=== PATIENT | male | born 1945 | race Caucasian/White ===

== ENCOUNTER 2017-12-22 09:52 | Inpatient (IN) | payer OTHER ==
[2017-12-22 11:23] VITALS: BMI 27.4
[2017-12-22] MEDS ORDERED: FLU VACCINE QUAD 60 MCG/0.5 ML (MDV 18-19) IM ONE (13:00)
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
[2017-12-22] MEDS ORDERED: MENTHOL/PHENOL 1 EACH UD MM PRN (16:47)
[2017-12-22] MEDS ORDERED: MAGNESIUM HYDROX 2400MG/30ML ORAL SUSPENSION 30 ML CUP PO PRN (16:47)
[2017-12-22] MEDS ORDERED: P-EPHED 60MG/TRIPROLIDI 2.5MG TABLET PO PRN (16:47)
[2017-12-22] MEDS ORDERED: LOPERAMIDE HCL 2 MG CAPSULE PO PRN (16:47)
[2017-12-22] MEDS ORDERED: guaiFENesin/D-METHORPHAN HB 10 ML UNIT-DOSE CUPS PO PRN (16:47)
[2017-12-22] MEDS ORDERED: chlordiazePOXIDE HCL 25 MG CAPSULE PO PRN (16:47)
[2017-12-22] MEDS ORDERED: MAG HYDROX/AL HYDROX/SIMETH 30 ML UNIT-DOSE CUP PO PRN (16:47)
[2017-12-22] MEDS ORDERED: MAGNESIUM CITRATE 300 ML BOTTLE PO PRN (16:47)
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
[2017-12-22] MEDS: THIAMINE HCL 100 MG TABLET (FP) PO SCH (22:35)
[2017-12-22] MEDS: traZODone HCL 50 MG TABLET (FP) PO SCH (22:35)
[2017-12-22] MEDS: chlordiazePOXIDE HCL 25 MG CAPSULE PO SCH (22:35)
[2017-12-23] MEDS: chlordiazePOXIDE HCL 25 MG CAPSULE PO SCH ×4 (05:50→22:20)
[2017-12-23] MEDS ORDERED: FLU VACCINE QUAD 60 MCG/0.5 ML (MDV 18-19) IM ONE (10:00)
[2017-12-23] MEDS: PRENATAL VITAMINS W/ FOLIC ACID TABLET (FP) PO SCH (10:39)
[2017-12-23 10:53] LABS: HEMATOCRIT 39.1 % (35.4-49); HEMOGLOBIN 12.9 GM/dL (11.7-16.9); MCH 31.8 pg (25.7-33.7); MEAN CELL VOLUME 96.4 fl (80-96); PLATELET COUNT 254 K/MM3 (134-434); RBC 4.05 M/mm3 (4.00-5.60); RDW 14.1 % (11.9-15.9); WHITE BLOOD COUNT 5.5 K/mm3 (4.0-10.0)
[2017-12-23 10:57] LABS: URINE APPEARANCE CLEAR; URINE BILIRUBIN NEGATIVE (<2.0 mg/dL); URINE COLOR YELLOW; URINE GLUCOSE (UA) NEGATIVE (NEGATIVE); URINE KETONE NEGATIVE (NEGATIVE); URINE LEUK ESTERASE NEGATIVE (NEGATIVE); URINE NITRITE NEGATIVE (NEGATIVE); URINE PROTEIN NEGATIVE (NEGATIVE); URINE UROBILINOGEN NEGATIVE mg/dL (0.2-1.0)
[2017-12-23 11:04] LABS: ALBUMIN 2.8 g/dl (3.4-5.0); ALK PHOS 103 U/L (45-117); ANION GAP 12 MMOL/L (8-16); BILIRUBIN,TOTAL 0.3 mg/dL (0.2-1); BLOOD UREA NITROGEN 16 mg/dL (7-18); CALCIUM 8.3 mg/dL (8.5-10.1); CHLORIDE 106 mmol/L (98-107); CO2 23 mmol/L (21-32); GLUCOSE,RANDOM 143 mg/dL (74-106); POTASSIUM 3.6 mmol/L (3.5-5.1); SGOT/AST 26 U/L (15-37); SGPT/ALT 37 U/L (13-61); SODIUM 141 mmol/L (136-145); TOT PROT 6.4 g/dl (6.4-8.2)
--- NOTE | 2017-12-23 11:42 | PN ---
S CIWA - CIWA Score Nausea/Vomitin-No Nausea/No Vomiting Muscle Tremors: 4-Moderate,w/Arms Extend Anxiety: 4-Mod. Anxious/Guarded Agitation: 3 Paroxysmal Sweats: 1-Minimal Palms Moist Orientation: 0-Oriented Tacttile Disturbances: 0-None Auditory Disturbances: 0-None Visual Disturbances: 0-None Headache: 0-None Present CIWA-Ar Total Score: 12 BHS Progress Note (SOAP) Subjective: ANXIETY,SWEATS,FATIGUE. Objective: 12/23/17 11:44 Vital Signs 12/23/17 12/23/17 06:07 09:17 Temperature 96.9 F L 96.8 F L Pulse Rate 55 L 60 Respiratory 18 18 Rate Blood Pressure 147/75 118/73 Laboratory Tests 12/23/17 12/23/17 12/23/17 07:50 07:50 08:50 WBC 5.5 RBC 4.05 Hgb 12.9 Hct 39.1 MCV 96.4 H MCH 31.8 MCHC 33.0 RDW 14.1 Plt Count 254 MPV 8.0 Sodium 141 Potassium 3.6 Chloride 106 Carbon Dioxide 23 Anion Gap 12 BUN 16 Creatinine 1.0 Creat Clearance w eGFR > 60 Random Glucose 143 H Calcium 8.3 L Total Bilirubin 0.3 AST 26 ALT 37 Alkaline Phosphatase 103 Total Protein 6.4 Albumin 2.8 L Urine Color Yellow Urine Appearance Clear Urine pH 6.0 Ur Specific [place] 1.015 Urine Protein Negative Urine Glucose (UA) Negative Urine Ketones Negative Urine Blood Negative Urine Nitrite Negative Urine Bilirubin Negative Urine Urobilinogen Negative Ur Leukocyte Esterase Negative Assessment: 12/23/17 11:45 WITHDRAWAL SX Plan: CONTINUE DETOX INCREASE PO FLUIDS
--- NOTE | 2017-12-23 15:41 | EKG ---
Test Reason : Blood Pressure : / mmHG Vent. Rate : 059 BPM Atrial Rate : 059 BPM P-R Int : 140 ms QRS Dur : 088 ms QT Int : 440 ms P-R-T Axes : 059 -17 030 degrees QTc Int : 435 ms SINUS BRADYCARDIA OTHERWISE NORMAL ECG NO PREVIOUS ECGS AVAILABLE Confirmed by MD Nestor, Bladimir ([id number]) on 12/23/2017 3:41:12 PM Referred By: Confirmed By:Bladimir Baez MD
[2017-12-23] MEDS: THIAMINE HCL 100 MG TABLET (FP) PO SCH (22:19)
[2017-12-23] MEDS: traZODone HCL 50 MG TABLET (FP) PO SCH (22:20)
[2017-12-24] MEDS: chlordiazePOXIDE HCL 25 MG CAPSULE PO SCH ×3 (05:39→17:19)
[2017-12-24] MEDS: PRENATAL VITAMINS W/ FOLIC ACID TABLET (FP) PO SCH (10:44)
--- NOTE | 2017-12-24 16:19 | PN ---
S CIWA - CIWA Score Nausea/Vomitin Muscle Tremors: 4-Moderate,w/Arms Extend Anxiety: 4-Mod. Anxious/Guarded Agitation: 4-Moderately Restless Paroxysmal Sweats: 3 Orientation: 0-Oriented Tacttile Disturbances: 0-None Auditory Disturbances: 0-None Visual Disturbances: 0-None Headache: 1-Very Mild CIWA-Ar Total Score: 18 BHS Progress Note (SOAP) Subjective: Headache, anxious, feels lonely, requesting to see psychiatrist Objective: 12/24/17 16:17 Last Vital Signs Temp Pulse Resp BP Pulse Ox 98.1 F 63 18 124/71 12/24/17 13:40 12/24/17 13:40 12/24/17 13:40 12/24/17 13:40 Laboratory Tests 12/23/17 12/23/17 12/23/17 07:50 07:50 07:50 WBC 5.5 RBC 4.05 Hgb 12.9 Hct 39.1 MCV 96.4 H MCH 31.8 MCHC 33.0 RDW 14.1 Plt Count 254 MPV 8.0 Sodium 141 Potassium 3.6 Chloride 106 Carbon Dioxide 23 Anion Gap 12 BUN 16 Creatinine 1.0 Creat Clearance w eGFR > 60 Random Glucose 143 H Calcium 8.3 L Total Bilirubin 0.3 AST 26 ALT 37 Alkaline Phosphatase 103 Total Protein 6.4 Albumin 2.8 L Urine Color Urine Appearance Urine pH Ur Specific [place] Urine Protein Urine Glucose (UA) Urine Ketones Urine Blood Urine Nitrite Urine Bilirubin Urine Urobilinogen Ur Leukocyte Esterase RPR Titer Nonreactive 12/23/17 08:50 WBC RBC Hgb Hct MCV MCH MCHC RDW Plt Count MPV Sodium Potassium Chloride Carbon Dioxide Anion Gap BUN Creatinine Creat Clearance w eGFR Random Glucose Calcium Total Bilirubin AST ALT Alkaline Phosphatase Total Protein Albumin Urine Color Yellow Urine Appearance Clear Urine pH 6.0 Ur Specific [place] 1.015 Urine Protein Negative Urine Glucose (UA) Negative Urine Ketones Negative Urine Blood Negative Urine Nitrite Negative Urine Bilirubin Negative Urine Urobilinogen Negative Ur Leukocyte Esterase Negative RPR Titer Labs reviewed: glucose 143 Assessment: 12/24/17 16:18 Withdrawal symptoms Noted with hyperglycemia Plan: Continue detox Hyperglycemia: repeat fasting glucose, send HbA1c
[2017-12-24] MEDS: THIAMINE HCL 100 MG TABLET (FP) PO SCH (22:05)
[2017-12-24] MEDS: chlordiazePOXIDE 5 MG CAPSULE PO SCH (22:05)
[2017-12-24] MEDS: traZODone HCL 50 MG TABLET (FP) PO SCH (22:06)
[2017-12-25] MEDS: MELATONIN 5 MG TABLETS PO PRN ×2 (00:28→22:06)
[2017-12-25] MEDS: chlordiazePOXIDE 5 MG CAPSULE PO SCH ×3 (05:59→17:48)
[2017-12-25] MEDS ORDERED: HYDROCORTISONE 1% TOPICAL CREAM 30 GM TUBE TP PRN (09:39)
[2017-12-25] MEDS: SELENIUM SULFIDE 2.5% LOTION 4 OZ. TP SCH (10:28)
[2017-12-25] MEDS: HYDROCORTISONE 1% TOPICAL CREAM 30 GM TUBE TP SCH ×2 (10:28→22:06)
[2017-12-25] MEDS: PRENATAL VITAMINS W/ FOLIC ACID TABLET (FP) PO SCH (10:28)
--- NOTE | 2017-12-25 12:24 | PN ---
S Progress Note (SOAP) Subjective: Tremor, chills, sweating; c/o dandruff in his scalp and requesting shampoo. Objective: 12/25/17 12:25 Last Vital Signs Temp Pulse Resp BP Pulse Ox 97 F L 50 L 18 100/54 L 12/25/17 10:01 12/25/17 10:01 12/25/17 10:01 12/25/17 10:01 Laboratory Tests 12/23/17 12/23/17 12/23/17 07:50 07:50 07:50 WBC 5.5 RBC 4.05 Hgb 12.9 Hct 39.1 MCV 96.4 H MCH 31.8 MCHC 33.0 RDW 14.1 Plt Count 254 MPV 8.0 Sodium 141 Potassium 3.6 Chloride 106 Carbon Dioxide 23 Anion Gap 12 BUN 16 Creatinine 1.0 Creat Clearance w eGFR > 60 Random Glucose 143 H Fasting Glucose Hemoglobin A1c % Calcium 8.3 L Total Bilirubin 0.3 AST 26 ALT 37 Alkaline Phosphatase 103 Total Protein 6.4 Albumin 2.8 L Urine Color Urine Appearance Urine pH Ur Specific [place] Urine Protein Urine Glucose (UA) Urine Ketones Urine Blood Urine Nitrite Urine Bilirubin Urine Urobilinogen Ur Leukocyte Esterase RPR Titer Nonreactive 12/23/17 12/25/17 12/25/17 08:50 07:00 07:00 WBC RBC Hgb Hct MCV MCH MCHC RDW Plt Count MPV Sodium Potassium Chloride Carbon Dioxide Anion Gap BUN Creatinine Creat Clearance w eGFR Random Glucose Fasting Glucose 91 Hemoglobin A1c % 5.9 Calcium Total Bilirubin AST ALT Alkaline Phosphatase Total Protein Albumin Urine Color Yellow Urine Appearance Clear Urine pH 6.0 Ur Specific [place] 1.015 Urine Protein Negative Urine Glucose (UA) Negative Urine Ketones Negative Urine Blood Negative Urine Nitrite Negative Urine Bilirubin Negative Urine Urobilinogen Negative Ur Leukocyte Esterase Negative RPR Titer Labs reviewed Assessment: 12/25/17 12:26 Withdrawal symptoms Noted with seborrheic dermatitis on scalp and dermatitis NOS on face Plan: Continue detox Seborrheic dermatitis on scalp: selsun blue shampoo prn Dermatitis NOS on face: hydrocortisone cream 1% bid
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
[2017-12-25] MEDS: traZODone HCL 50 MG TABLET (FP) PO SCH (22:06)
[2017-12-25] MEDS: THIAMINE HCL 100 MG TABLET (FP) PO SCH (22:06)
[2017-12-25] MEDS: chlordiazePOXIDE HCL 10 MG CAPSULE PO SCH (22:06)
[2017-12-26] MEDS: chlordiazePOXIDE HCL 10 MG CAPSULE PO SCH ×3 (05:57→17:06)
[2017-12-26] MEDS: SELENIUM SULFIDE 2.5% LOTION 4 OZ. TP SCH (10:34)
[2017-12-26] MEDS: PRENATAL VITAMINS W/ FOLIC ACID TABLET (FP) PO SCH (10:34)
[2017-12-26] MEDS: HYDROCORTISONE 1% TOPICAL CREAM 30 GM TUBE TP SCH ×2 (10:34→22:15)
[2017-12-26] MEDS: hydrOXYzine PAMOATE 25 MG CAPSULE (FP) PO PRN ×2 (10:43→23:57)
--- NOTE | 2017-12-26 14:19 | PN ---
BHS Progress Note (SOAP) Subjective: Anxious, interrupted sleep Objective: 12/26/17 14:18 Last Vital Signs Temp Pulse Resp BP Pulse Ox 97.2 F L 57 L 16 108/60 12/26/17 09:24 12/26/17 09:24 12/26/17 09:24 12/26/17 09:24 Laboratory Tests 12/23/17 12/23/17 12/23/17 07:50 07:50 07:50 WBC 5.5 RBC 4.05 Hgb 12.9 Hct 39.1 MCV 96.4 H MCH 31.8 MCHC 33.0 RDW 14.1 Plt Count 254 MPV 8.0 Sodium 141 Potassium 3.6 Chloride 106 Carbon Dioxide 23 Anion Gap 12 BUN 16 Creatinine 1.0 Creat Clearance w eGFR > 60 Random Glucose 143 H Fasting Glucose Hemoglobin A1c % Calcium 8.3 L Total Bilirubin 0.3 AST 26 ALT 37 Alkaline Phosphatase 103 Total Protein 6.4 Albumin 2.8 L Urine Color Urine Appearance Urine pH Ur Specific [place] Urine Protein Urine Glucose (UA) Urine Ketones Urine Blood Urine Nitrite Urine Bilirubin Urine Urobilinogen Ur Leukocyte Esterase RPR Titer Nonreactive 12/23/17 12/25/17 12/25/17 08:50 07:00 07:00 WBC RBC Hgb Hct MCV MCH MCHC RDW Plt Count MPV Sodium Potassium Chloride Carbon Dioxide Anion Gap BUN Creatinine Creat Clearance w eGFR Random Glucose Fasting Glucose 91 Hemoglobin A1c % 5.9 Calcium Total Bilirubin AST ALT Alkaline Phosphatase Total Protein Albumin Urine Color Yellow Urine Appearance Clear Urine pH 6.0 Ur Specific [place] 1.015 Urine Protein Negative Urine Glucose (UA) Negative Urine Ketones Negative Urine Blood Negative Urine Nitrite Negative Urine Bilirubin Negative Urine Urobilinogen Negative Ur Leukocyte Esterase Negative RPR Titer Labs reviewed Assessment: 12/26/17 14:18 Withdrawal symptoms Plan: Continue detox Encouraged PO water intake
[2017-12-26] MEDS: IBUPROFEN 400 MG TABLET (FP) PO PRN (18:05)
[2017-12-26] MEDS: traZODone HCL 50 MG TABLET (FP) PO SCH (22:15)
[2017-12-26] MEDS: MELATONIN 5 MG TABLETS PO PRN (22:15)
[2017-12-26] MEDS: THIAMINE HCL 100 MG TABLET (FP) PO SCH (22:15)
[2017-12-27] MEDS: HYDROCORTISONE 1% TOPICAL CREAM 30 GM TUBE TP SCH ×2 (10:49→21:34)
[2017-12-27] MEDS: SELENIUM SULFIDE 2.5% LOTION 4 OZ. TP SCH (10:49)
[2017-12-27] MEDS: PRENATAL VITAMINS W/ FOLIC ACID TABLET (FP) PO SCH (10:49)
--- NOTE | 2017-12-27 11:51 | DS ---
[facility] Detox Discharge Summary Admission Date: 12/22/17 Discharge Date: 12/27/17 - History Present History: Alcohol Dependence Pertinent Past History: Hypothyroidism HLD - Physical Exam Results Vital Signs: Vital Signs Temperature 97.1 F L 12/27/17 09:38 Pulse Rate 62 12/27/17 09:38 Respiratory Rate 18 12/27/17 09:38 Blood Pressure 99/59 L 12/27/17 09:38 O2 Sat by Pulse Oximetry (%) Pertinent Admission Physical Exam Findings: Withdrawal symptoms Laboratory Tests 12/23/17 12/23/17 12/23/17 07:50 07:50 07:50 WBC 5.5 RBC 4.05 Hgb 12.9 Hct 39.1 MCV 96.4 H MCH 31.8 MCHC 33.0 RDW 14.1 Plt Count 254 MPV 8.0 Sodium 141 Potassium 3.6 Chloride 106 Carbon Dioxide 23 Anion Gap 12 BUN 16 Creatinine 1.0 Creat Clearance w eGFR > 60 Random Glucose 143 H Fasting Glucose Hemoglobin A1c % Calcium 8.3 L Total Bilirubin 0.3 AST 26 ALT 37 Alkaline Phosphatase 103 Total Protein 6.4 Albumin 2.8 L Urine Color Urine Appearance Urine pH Ur Specific [place] Urine Protein Urine Glucose (UA) Urine Ketones Urine Blood Urine Nitrite Urine Bilirubin Urine Urobilinogen Ur Leukocyte Esterase RPR Titer Nonreactive 12/23/17 12/25/17 12/25/17 08:50 07:00 07:00 WBC RBC Hgb Hct MCV MCH MCHC RDW Plt Count MPV Sodium Potassium Chloride Carbon Dioxide Anion Gap BUN Creatinine Creat Clearance w eGFR Random Glucose Fasting Glucose 91 Hemoglobin A1c % 5.9 Calcium Total Bilirubin AST ALT Alkaline Phosphatase Total Protein Albumin Urine Color Yellow Urine Appearance Clear Urine pH 6.0 Ur Specific [place] 1.015 Urine Protein Negative Urine Glucose (UA) Negative Urine Ketones Negative Urine Blood Negative Urine Nitrite Negative Urine Bilirubin Negative Urine Urobilinogen Negative Ur Leukocyte Esterase Negative RPR Titer Labs reviewed - Treatment Hospital Course: Detox Protocol Followed, Detoxed Safely, Responded well, Discharged Condition Good, Rehab Referral Accepted - Diagnosis (1) Hyperglycemia Current Visit: Yes Status: Acute (2) Alcohol dependence with uncomplicated withdrawal Current Visit: Yes Status: Acute (3) Alcohol-induced mood disorder Current Visit: Yes Status: Acute (4) Insomnia Current Visit: Yes Status: Acute (5) History of hypothyroidism Current Visit: Yes Status: Chronic (6) Hx of hyperlipidemia Current Visit: Yes Status: Chronic (7) Dermatitis, unspecified Current Visit: Yes Status: Acute (8) Seborrheic dermatitis of scalp Current Visit: Yes Status: Acute - AMA Did Patient Leave Against Medical Advice: No (F/U with your PCP within 1-2 weeks after completing rehab)
[2017-12-27] MEDS: IBUPROFEN 400 MG TABLET (FP) PO PRN (13:21)
--- NOTE | 2017-12-27 14:36 | HP ---
Psychiatrist Admission - Data Date of interview: 12/27/17 Admission source: 3N Identifying data: This is the first [facility] admission for this 72 years old [place]born male, father of 4 children, retired restauranteur, domiciled Medical History: Significant for dyslipidemia, hypothyroid, history of treatment for gonorrhea in 1967, vasectomy and orthosurgery for torn rotator cuff repair, lithitripsy. Psychiatric History: Patient does not seem quite reliable in relating his psychiatric history. He told JUANITO Bazzi on 12/22/17 while in detox that he was admitted to a hospital in [place] 6 months ago but was unable to explain why he was at a psychiatric facility. He told conventional underwriter that he was admitted to that hospital 6 months ago for depression and stayed there for 2 months. Reports that he was started on medication but has no recollection of the name of that medication. Claims that he stopped taking it but cannot say when he did. Reportedly prior to his admission to detox, he contemplated of jumping off a window while at a hotel. Apparently, patient flew from [place] the day before. He reported drinking heavily during the whole trip and when landed at [facility] he became frustrated for losing his cell phone and luggage. Physical/Sexual Abuse/Trauma History: Denies history of emotional, physical or sexual abuse as well as DV relationship. Reports that he was in the [facility] for 3 years ![id number] Vital Signs: Vital Signs - 24 hr 12/26/17 12/26/17 12/27/17 18:00 22:00 00:30 Temperature 97.7 F 98.9 F Pulse Rate 49 L 66 Respiratory 16 18 18 Rate Blood Pressure 125/69 115/74 12/27/17 12/27/17 12/27/17 06:44 09:38 14:15 Temperature 97.2 F L 97.1 F L 98.2 F Pulse Rate 48 L 62 60 Respiratory 18 18 20 Rate Blood Pressure 100/64 99/59 L 138/80 Allergies/Adverse Reactions: Allergies Allergy/AdvReac Type Severity Reaction Status Date / Time No Known Allergies Allergy Verified 12/22/17 12:39 Date of last physical exam: 12/22/17 Concur with the findings of this exam: Yes - Substance Abuse/Tx History Hx Alcohol Use: Yes Hx Substance Use: No Substance Use Type: Alcohol (Started drinking alcohol at age 17, consumes 2-3 x 750 ml & 10x 16oz of beer daily. Last drank on 12/20/17) Hx Substance Use Treatment: Yes (2 previous inpt detox & one inpt rehab admissions) Mental Status Exam - Mental Status Exam Alert and Oriented to: Time, Place, Person Cognitive Function: Fair Patient Appearance: Well Groomed Mood: Anxious Affect: Appropriate Patient Behavior: Cooperative Speech Pattern: Clear Thought Process: Intact, Goal Oriented Hallucinations: Denies Suicidal Ideation: Denies Homicidal Ideation: Denies Insight/Judgement: Fair Sleep: Poorly Appetite: Good Muscle strength/Tone: Normal Gait/Station: Normal Psychiatric Findings - Problem List ([place] 1, 2,3) (1) Alcohol dependence Current Visit: Yes Status: Acute (2) Alcohol-induced anxiety disorder Current Visit: Yes Status: Acute (3) Alcohol-induced sleep disorder Current Visit: Yes Status: Acute (4) Hx of hyperlipidemia Current Visit: Yes Status: Chronic (5) History of hypothyroidism Current Visit: Yes Status: Chronic - Initial Treatment Plan Initial Treatment Plan: 1) Start Trazadone 100 mg po HS. 2) Monitor progress
--- NOTE | 2017-12-27 15:06 | HP ---
AUGUSTIN GRAHAM Rehab Assess/Revision - Admission History Admitted to Rehab from: [address] [place] Date of Admission to Rehab: 12/27/17 - Vital signs Vital Signs: Vital Signs Period Temp Pulse Resp BP Sys/Ruano Pulse Ox Last 24 Hr 97.1 F-98.9 F 48-66 16-20 99-138/59-80 - Findings Detox History & Physical reviewed: Yes Concur with findings: Yes Inpatient Rehab Admission - Initial Determination Are CD services needed?: Yes Free of communicable disease: Yes Not in need of hospitalization: Yes - Rehab Admission Criteria Patient is meeting Inpatient Rehab admission criteria:: Yes
[2017-12-27] MEDS: THIAMINE HCL 100 MG TABLET (FP) PO SCH (21:33)
[2017-12-27] MEDS: ATORVASTATIN CA 40 MG TABLET (FP) PO SCH (21:34)
[2017-12-27] MEDS: traZODone HCL 100 MG TABLET (FP) PO SCH (21:34)
[2017-12-28] MEDS: LEVOTHYROXINE NA 100 MCG TABLET (FP) PO SCH (06:21)
[2017-12-28] MEDS: ACETAMINOPHEN 325 MG TABLET (FP) PO PRN (06:22)
[2017-12-28] MEDS: HYDROCORTISONE 1% TOPICAL CREAM 30 GM TUBE TP SCH ×2 (10:09→21:35)
[2017-12-28] MEDS: PRENATAL VITAMINS W/ FOLIC ACID TABLET (FP) PO SCH (10:10)
[2017-12-28] MEDS: SELENIUM SULFIDE 2.5% LOTION 4 OZ. TP SCH (11:00)
[2017-12-28] MEDS ORDERED: FLU VACCINE QUAD 60 MCG/0.5 ML (MDV 18-19) IM ONE (12:00)
[2017-12-28] MEDS ORDERED: PNEUMOC 13-VAL CONJ-DIP CRM/PF 0.5 ML DISP.SYRIN IM ONE (12:00)
[2017-12-28] MEDS: IBUPROFEN 400 MG TABLET (FP) PO PRN (14:31)
[2017-12-28] MEDS: ATORVASTATIN CA 40 MG TABLET (FP) PO SCH (21:34)
[2017-12-28] MEDS: traZODone HCL 100 MG TABLET (FP) PO SCH (21:34)
[2017-12-28] MEDS: hydrOXYzine PAMOATE 25 MG CAPSULE (FP) PO PRN (21:34)
[2017-12-28] MEDS: THIAMINE HCL 100 MG TABLET (FP) PO SCH (21:34)
[2017-12-28] MEDS: MELATONIN 5 MG TABLETS PO PRN (21:35)
[2017-12-29] MEDS: IBUPROFEN 400 MG TABLET (FP) PO PRN ×3 (06:43→21:41)
[2017-12-29] MEDS: LEVOTHYROXINE NA 100 MCG TABLET (FP) PO SCH (06:43)
[2017-12-29] MEDS: PRENATAL VITAMINS W/ FOLIC ACID TABLET (FP) PO SCH (10:06)
[2017-12-29] MEDS: hydrOXYzine PAMOATE 25 MG CAPSULE (FP) PO PRN (10:08)
[2017-12-29] MEDS: HYDROCORTISONE 1% TOPICAL CREAM 30 GM TUBE TP SCH ×2 (10:09→21:42)
[2017-12-29] MEDS: SELENIUM SULFIDE 2.5% LOTION 4 OZ. TP SCH (10:09)
--- NOTE | 2017-12-29 14:59 | PN ---
S Progress Note Note: ROUTINE ADMISSION CXR DONE ON 12/25/17 RE:PPD POSITIVE HX WAS GROSSLY NORMAL EXCEPT A DENSITY IN THE CARDIOPHRENIC ANGLE. RADIOLOGIST SUGGESTION FOR F/U WITH CTSCAN WITHOUT CONTRAST. SEE CXR REPORT IN CHART. PLAN:CT SCAN WITHOUT CONTRAST TODAY. ADDENDUM: PT REPORTS HE JUST RETURNED FROM [place] ON 12/21/17 WHERE HE HAS A PMD. WS TOLD BY HIS DOCTOR SIX WEEKS AGO IN [place] THAT HE HAS SOME SPOTS IN HIS LIVER. ALSO C/O PAIN LEFT UPPER QUANDRANT- 5 ON A SCALE OF10 SINCE COUPLE OF DAYS.
[2017-12-29] MEDS: ACETAMINOPHEN 325 MG TABLET (FP) PO PRN (16:51)
[2017-12-29] MEDS: ATORVASTATIN CA 40 MG TABLET (FP) PO SCH (21:40)
[2017-12-29] MEDS: traZODone HCL 100 MG TABLET (FP) PO SCH (21:40)
[2017-12-29] MEDS: THIAMINE HCL 100 MG TABLET (FP) PO SCH (21:42)
[2017-12-30] MEDS: hydrOXYzine PAMOATE 25 MG CAPSULE (FP) PO PRN ×2 (01:46→21:40)
[2017-12-30] MEDS: MELATONIN 5 MG TABLETS PO PRN ×2 (01:46→21:40)
[2017-12-30] MEDS: LEVOTHYROXINE NA 100 MCG TABLET (FP) PO SCH (06:40)
[2017-12-30] MEDS: PRENATAL VITAMINS W/ FOLIC ACID TABLET (FP) PO SCH (09:50)
[2017-12-30] MEDS: HYDROCORTISONE 1% TOPICAL CREAM 30 GM TUBE TP SCH ×2 (09:50→21:42)
[2017-12-30] MEDS: SELENIUM SULFIDE 2.5% LOTION 4 OZ. TP SCH (09:50)
[2017-12-30] MEDS: THIAMINE HCL 100 MG TABLET (FP) PO SCH (21:40)
[2017-12-30] MEDS: traZODone HCL 100 MG TABLET (FP) PO SCH (21:40)
[2017-12-30] MEDS: ATORVASTATIN CA 40 MG TABLET (FP) PO SCH (21:41)
[2017-12-31] MEDS: LEVOTHYROXINE NA 100 MCG TABLET (FP) PO SCH (06:26)
[2017-12-31] MEDS: PRENATAL VITAMINS W/ FOLIC ACID TABLET (FP) PO SCH (09:55)
[2017-12-31] MEDS: SELENIUM SULFIDE 2.5% LOTION 4 OZ. TP SCH (09:55)
[2017-12-31] MEDS: HYDROCORTISONE 1% TOPICAL CREAM 30 GM TUBE TP SCH ×2 (09:55→21:44)
[2017-12-31] MEDS: THIAMINE HCL 100 MG TABLET (FP) PO SCH (21:42)
[2017-12-31] MEDS: traZODone HCL 100 MG TABLET (FP) PO SCH (21:42)
[2017-12-31] MEDS: MELATONIN 5 MG TABLETS PO PRN (21:42)
[2017-12-31] MEDS: hydrOXYzine PAMOATE 25 MG CAPSULE (FP) PO PRN (21:43)
[2017-12-31] MEDS: ATORVASTATIN CA 40 MG TABLET (FP) PO SCH (21:43)
[2018-01-01] MEDS: LEVOTHYROXINE NA 100 MCG TABLET (FP) PO SCH (06:36)
[2018-01-01] MEDS: PRENATAL VITAMINS W/ FOLIC ACID TABLET (FP) PO SCH (09:58)
[2018-01-01] MEDS: HYDROCORTISONE 1% TOPICAL CREAM 30 GM TUBE TP SCH ×2 (10:00→21:28)
--- NOTE | 2018-01-01 14:49 | PN ---
Psychiatric Progress Note Vital Signs: Vital Signs Period Temp Pulse Resp BP Sys/Ruano Pulse Ox Last 24 Hr 54 16-16 111/70 Date of Session: 01/01/18 Chief Complaint:: Follow up HPI: Patient addressing Alcohol Dependence comorobid with Alcohol-Induced Anxiety Disorder and Alcohol-Induced Sleep Disorder ROS: HLD, Hypothyroidism Current Medications: Active Medications Generic Name Dose Route Start Last Admin Trade Name Freq PRN Reason Stop Dose Admin Acetaminophen 650 mg 12/22/17 16:47 12/29/17 16:51 Tylenol - PO 650 mg Q4H PRN Administration FEVER Al Hydroxide/Mg Hydroxide 30 ml 12/22/17 16:47 Mylanta Oral Suspension - PO Q6H PRN DYSPEPSIA Atorvastatin Calcium 40 mg 12/27/17 22:00 12/31/17 21:43 Lipitor - PO 40 mg HS JUVENTINO Administration Escitalopram Oxalate 20 mg 01/01/18 14:45 Lexapro - PO DAILY JUVENTINO Eucalyptus/Menthol/Phenol/Sorbitol 1 each 12/22/17 16:47 12/24/17 22:07 Cepastat Lozenge - MM 1 each Q4H PRN Administration SORE THROAT Guaifenesin 10 ml 12/22/17 16:47 Robitussin Dm - PO Q6H PRN COUGH Hydrocortisone 1 applic 12/25/17 10:00 01/01/18 10:00 Hytone 1% Cream - TP 1 applic BID JUVENTINO Administration Hydroxyzine Pamoate 25 mg 12/22/17 16:47 12/31/17 21:43 Vistaril - PO 25 mg Q4H PRN Administration AGITATION Ibuprofen 400 mg 12/22/17 16:47 12/29/17 21:41 Motrin - PO 400 mg Q6H PRN Administration PAIN LEVEL 4-6 Levothyroxine Sodium 100 mcg 12/28/17 07:00 01/01/18 06:36 Synthroid - PO 100 mcg DAILY@0700 JUVENTINO Administration Loperamide HCl 4 mg 12/22/17 16:47 Imodium - PO Q6H PRN DIARRHEA Magnesium Citrate 300 ml 12/22/17 16:47 Citroma - PO Q48H PRN CONSTIPATION Magnesium Hydroxide 30 ml 12/22/17 16:47 Milk Of Magnesia - PO DAILY PRN CONSTIPATION Melatonin 5 mg 12/22/17 22:00 12/31/17 21:42 Melatonin PO 5 mg HS PRN Administration INSOMNIA Multivit/Folic Acid/Iron 1 tab 12/23/17 10:00 01/01/18 09:58 Vitamins (Sjr) - PO 1 tab DAILY JUVENTINO Administration Pseudoephedrine/Triprolidine 1 combo 12/22/17 16:47 Actifed - PO TID PRN NASAL CONGESTION Thiamine HCl 100 mg 12/22/17 22:00 12/31/17 21:42 Vitamin B1 - PO 100 mg HS JUVENTINO Administration Trazodone HCl 100 mg 12/27/17 22:00 12/31/17 21:42 Desyrel - PO 100 mg HS JUVENTINO Administration Current Side Effect: No Lab tests ordered: Yes Lab tests reviewed: Yes Provider note:: Patient with the help of his counselor using the was able to googled for his primary care physician's phone number( Dr Fan [phone]. He called the doctor for information about his medication. These are Trazadone 100 mg po HS, Lexapro 20 mg po daily, Levothyroxine 50 mcg po daily and Lipitor 40 mg po daily. Patient is already on these medication except Lexapro. He is on a higher dose of Levothyroxine 100 mcg. He was told to inform [employer] [employer] about that. When he was admitted he could not recall his medications. Lexapro 20 mg po daily is ordered Total face to face time:: 15 Mental Status Exam - Mental Status Exam Alert and Oriented to: Time, Place, Person Cognitive Function: Fair Patient Appearance: Well Groomed Mood: Hopeful, Euthymic Affect: Appropriate Patient Behavior: Cooperative Speech Pattern: Clear Voice Loudness: Normal Thought Process: Intact, Goal Oriented Thought Disorder: Not Present Hallucinations: Denies Suicidal Ideation: Denies Homicidal Ideation: Denies Insight/Judgement: Fair Sleep: Fair Appetite: Good Muscle strength/Tone: Normal Gait/Station: Normal Psychiatric Treatment Plan - Problem List (1) Alcohol dependence Current Visit: Yes (2) Alcohol-induced anxiety disorder Current Visit: Yes (3) Alcohol-induced sleep disorder Current Visit: Yes (4) Hx of hyperlipidemia Current Visit: Yes (5) History of hypothyroidism Current Visit: Yes Initial treatment plan: 1) Resume Lexapro 20 mg po daily. 2) Monitor progress
[2018-01-01] MEDS: ESCITALOPRAM OXALATE 20 MG TABLET (FP) PO SCH (15:38)
[2018-01-01] MEDS: MELATONIN 5 MG TABLETS PO PRN (21:27)
[2018-01-01] MEDS: THIAMINE HCL 100 MG TABLET (FP) PO SCH (21:27)
[2018-01-01] MEDS: ATORVASTATIN CA 40 MG TABLET (FP) PO SCH (21:27)
[2018-01-01] MEDS: traZODone HCL 100 MG TABLET (FP) PO SCH (21:27)
[2018-01-01] MEDS: hydrOXYzine PAMOATE 25 MG CAPSULE (FP) PO PRN (21:29)
[2018-01-02] MEDS: LEVOTHYROXINE NA 100 MCG TABLET (FP) PO SCH (06:08)
[2018-01-02] MEDS: IBUPROFEN 400 MG TABLET (FP) PO PRN (06:25)
[2018-01-02] MEDS: ESCITALOPRAM OXALATE 20 MG TABLET (FP) PO SCH (10:06)
[2018-01-02] MEDS: PRENATAL VITAMINS W/ FOLIC ACID TABLET (FP) PO SCH (10:06)
[2018-01-02] MEDS: HYDROCORTISONE 1% TOPICAL CREAM 30 GM TUBE TP SCH ×2 (10:07→21:32)
--- NOTE | 2018-01-02 10:41 | PN ---
[facility] Progress Note Note: CT SCAN RESULT IN THE SYSTEM. 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 PT REPORTED ON ADMISSION HE TAKES SYNTHROID 100 MCG DAILY VERIFICATION FROM PRIMARY PROVIDER CLINIC REPORTS SYNTHROID 50 MCG DAILY AND PHARMACY CONFIRMED PT DID NOT CONSULTING HR PROFESSIONAL MED FROM PHARMACY INSTRUCTED. PT'S PRIMARY CARE LOCATED IN [place] WAS CONTACTED RE: MEDICATION LIST AND MEDICAL CARE FOLLOW UP PLANS. [facility] [phone] PHARMACY: [place], [place] PLAN:TSH, T4, AND T3 UPTAKE ORDERED IN A.M D/C SYNTHROID PENDING RESULT COPY OF CT SCAN GIVEN TO PT UPON DISCHARGE TO FOLLOW UP WITH HIS PRIMARY CARE DOCTOR AFTER REHAB. PT TO F/U WITH PRIMARY CARE AFTER REHAB.
[2018-01-02] MEDS: traZODone HCL 100 MG TABLET (FP) PO SCH (21:31)
[2018-01-02] MEDS: ATORVASTATIN CA 40 MG TABLET (FP) PO SCH (21:31)
[2018-01-02] MEDS: MELATONIN 5 MG TABLETS PO PRN (21:31)
[2018-01-02] MEDS: THIAMINE HCL 100 MG TABLET (FP) PO SCH (21:31)
[2018-01-02] MEDS: hydrOXYzine PAMOATE 25 MG CAPSULE (FP) PO PRN (21:31)
[2018-01-03] MEDS: IBUPROFEN 400 MG TABLET (FP) PO PRN (06:02)
[2018-01-03] MEDS: PRENATAL VITAMINS W/ FOLIC ACID TABLET (FP) PO SCH (09:31)
[2018-01-03] MEDS: ESCITALOPRAM OXALATE 20 MG TABLET (FP) PO SCH (09:31)
[2018-01-03] MEDS: HYDROCORTISONE 1% TOPICAL CREAM 30 GM TUBE TP SCH ×2 (09:32→21:21)
[2018-01-03] MEDS: THIAMINE HCL 100 MG TABLET (FP) PO SCH (21:21)
[2018-01-03] MEDS: traZODone HCL 100 MG TABLET (FP) PO SCH (21:21)
[2018-01-03] MEDS: ATORVASTATIN CA 40 MG TABLET (FP) PO SCH (21:21)
[2018-01-03] MEDS: MELATONIN 5 MG TABLETS PO PRN (21:21)
[2018-01-04] MEDS ORDERED: PT OWN MED DRAWER 7, Y5N ONE ×2 (07:09→07:28)
[2018-01-04] MEDS: ESCITALOPRAM OXALATE 20 MG TABLET (FP) PO SCH (09:50)
[2018-01-04] MEDS: PRENATAL VITAMINS W/ FOLIC ACID TABLET (FP) PO SCH (09:50)
[2018-01-04] MEDS: HYDROCORTISONE 1% TOPICAL CREAM 30 GM TUBE TP SCH ×2 (09:50→21:42)
[2018-01-04] MEDS: IBUPROFEN 400 MG TABLET (FP) PO PRN (18:24)
[2018-01-04] MEDS: ATORVASTATIN CA 40 MG TABLET (FP) PO SCH (21:41)
[2018-01-04] MEDS: THIAMINE HCL 100 MG TABLET (FP) PO SCH (21:41)
[2018-01-04] MEDS: MELATONIN 5 MG TABLETS PO PRN (21:41)
[2018-01-04] MEDS: traZODone HCL 100 MG TABLET (FP) PO SCH (21:41)
[2018-01-05] MEDS ORDERED: PT OWN MED DRAWER 7, Y5N ONE (08:22)
[2018-01-05] MEDS: PRENATAL VITAMINS W/ FOLIC ACID TABLET (FP) PO SCH (09:44)
[2018-01-05] MEDS: ESCITALOPRAM OXALATE 20 MG TABLET (FP) PO SCH (09:45)
[2018-01-05] MEDS: HYDROCORTISONE 1% TOPICAL CREAM 30 GM TUBE TP SCH ×2 (09:45→21:28)
[2018-01-05] MEDS: IBUPROFEN 400 MG TABLET (FP) PO PRN (19:22)
[2018-01-05] MEDS: MELATONIN 5 MG TABLETS PO PRN (21:00)
[2018-01-05] MEDS: THIAMINE HCL 100 MG TABLET (FP) PO SCH (21:00)
[2018-01-05] MEDS: ATORVASTATIN CA 40 MG TABLET (FP) PO SCH (21:00)
[2018-01-05] MEDS: traZODone HCL 100 MG TABLET (FP) PO SCH (21:00)
[2018-01-06] MEDS: HYDROCORTISONE 1% TOPICAL CREAM 30 GM TUBE TP SCH ×2 (10:00→21:19)
[2018-01-06] MEDS: ESCITALOPRAM OXALATE 20 MG TABLET (FP) PO SCH (10:00)
[2018-01-06] MEDS: PRENATAL VITAMINS W/ FOLIC ACID TABLET (FP) PO SCH (10:00)
[2018-01-06] MEDS: traZODone HCL 100 MG TABLET (FP) PO SCH (21:19)
[2018-01-06] MEDS: MELATONIN 5 MG TABLETS PO PRN (21:19)
[2018-01-06] MEDS: ATORVASTATIN CA 40 MG TABLET (FP) PO SCH (21:19)
[2018-01-06] MEDS: THIAMINE HCL 100 MG TABLET (FP) PO SCH (21:19)
--- NOTE | 2018-01-06 23:24 | PN ---
[facility] Progress Note Note: Laboratory Last Values WBC 5.5 K/mm3 (4.0-10.0) 12/23/17 07:50 RBC 4.05 M/mm3 (4.00-5.60) 12/23/17 07:50 Hgb 12.9 GM/dL (11.7-16.9) 12/23/17 07:50 Hct 39.1 % (35.4-49) 12/23/17 07:50 MCV 96.4 fl (80-96) H 12/23/17 07:50 MCH 31.8 pg (25.7-33.7) 12/23/17 07:50 MCHC 33.0 g/dl (32.0-35.9) 12/23/17 07:50 RDW 14.1 % (11.9-15.9) 12/23/17 07:50 Plt Count 254 K/MM3 (134-434) 12/23/17 07:50 MPV 8.0 fl (7.5-11.1) 12/23/17 07:50 Sodium 141 mmol/L (136-145) 12/23/17 07:50 Potassium 3.6 mmol/L (3.5-5.1) 12/23/17 07:50 Chloride 106 mmol/L (98-107) 12/23/17 07:50 Carbon Dioxide 23 mmol/L (21-32) 12/23/17 07:50 Anion Gap 12 MMOL/L (8-16) 12/23/17 07:50 BUN 16 mg/dL (7-18) 12/23/17 07:50 Creatinine 1.0 mg/dL (0.55-1.3) 12/23/17 07:50 Creat Clearance w eGFR > 60 (>60) 12/23/17 07:50 Random Glucose 143 mg/dL (74-106) H 12/23/17 07:50 Fasting Glucose 91 mg/dL (74-106) 12/25/17 07:00 Hemoglobin A1c % 5.9 % (4.2-6.3) 12/25/17 07:00 Calcium 8.3 mg/dL (8.5-10.1) L 12/23/17 07:50 Total Bilirubin 0.3 mg/dL (0.2-1) 12/23/17 07:50 AST 26 U/L (15-37) 12/23/17 07:50 ALT 37 U/L (13-61) 12/23/17 07:50 Alkaline Phosphatase 103 U/L (45-117) 12/23/17 07:50 Total Protein 6.4 g/dl (6.4-8.2) 12/23/17 07:50 Albumin 2.8 g/dl (3.4-5.0) L 12/23/17 07:50 TSH 42.80 uIU/ml (0.358-3.74) H 01/03/18 08:35 Resin T3 Uptake 27.3 % (33-40) L 01/03/18 08:35 Urine Color Yellow 12/23/17 08:50 Urine Appearance Clear 12/23/17 08:50 Urine pH 6.0 (5.0-8.0) 12/23/17 08:50 Ur Specific [place] 1.015 (1.001-1.035) 12/23/17 08:50 Urine Protein Negative (NEGATIVE) 12/23/17 08:50 Urine Glucose (UA) Negative (NEGATIVE) 12/23/17 08:50 Urine Ketones Negative (NEGATIVE) 12/23/17 08:50 Urine Blood Negative (NEGATIVE) 12/23/17 08:50 Urine Nitrite Negative (NEGATIVE) 12/23/17 08:50 Urine Bilirubin Negative (<2.0 mg/dL) 12/23/17 08:50 Urine Urobilinogen Negative mg/dL (0.2-1.0) 12/23/17 08:50 Ur Leukocyte Esterase Negative (NEGATIVE) 12/23/17 08:50 RPR Titer Nonreactive (NONREACTIVE) 12/23/17 07:50 HIV 1&2 Antibody Screen Negative 12/28/17 06:00 HIV P24 Antigen Negative 12/28/17 06:00 abn tsh/t3 noted client restarted on synthroid 50 mcg daily
[2018-01-07] MEDS ORDERED: PT OWN MED DRAWER 7, Y5N ONE (06:49)
[2018-01-07] MEDS: IBUPROFEN 400 MG TABLET (FP) PO PRN (06:52)
[2018-01-07] MEDS: LEVOTHYROXINE NA 25 MCG TABLET (FP) PO SCH (07:00)
[2018-01-07] MEDS ORDERED: LEVOTHYROXINE NA 50 MCG TABLET (FP) PO SCH (07:00)
[2018-01-07] MEDS: ESCITALOPRAM OXALATE 20 MG TABLET (FP) PO SCH (10:05)
[2018-01-07] MEDS: HYDROCORTISONE 1% TOPICAL CREAM 30 GM TUBE TP SCH ×2 (10:05→21:11)
[2018-01-07] MEDS: PRENATAL VITAMINS W/ FOLIC ACID TABLET (FP) PO SCH (10:05)
--- NOTE | 2018-01-07 15:24 | PN ---
S Progress Note Note: Patient reports experiencing difficulty to sleep despite taking Trazadone 100 mg at bedtime. Requests to be ordered Belsomra. Hypnotic effects of medication discussed with patient. Belsomra 10 mg po HS prn for insomnia ordered for patient
[2018-01-07] MEDS: THIAMINE HCL 100 MG TABLET (FP) PO SCH (21:10)
[2018-01-07] MEDS: traZODone HCL 100 MG TABLET (FP) PO SCH (21:10)
[2018-01-07] MEDS: ATORVASTATIN CA 40 MG TABLET (FP) PO SCH (21:10)
[2018-01-07] MEDS: SUVOREXANT 10 MG TABLET PO PRN (22:23)
[2018-01-08] MEDS: LEVOTHYROXINE NA 25 MCG TABLET (FP) PO SCH (06:22)
[2018-01-08] MEDS: IBUPROFEN 400 MG TABLET (FP) PO PRN (06:22)
[2018-01-08] MEDS: PRENATAL VITAMINS W/ FOLIC ACID TABLET (FP) PO SCH (10:33)
[2018-01-08] MEDS: ESCITALOPRAM OXALATE 20 MG TABLET (FP) PO SCH (10:33)
[2018-01-08] MEDS: HYDROCORTISONE 1% TOPICAL CREAM 30 GM TUBE TP SCH ×2 (10:33→21:50)
[2018-01-08] MEDS: THIAMINE HCL 100 MG TABLET (FP) PO SCH (21:51)
[2018-01-08] MEDS: hydrOXYzine PAMOATE 25 MG CAPSULE (FP) PO PRN (21:51)
[2018-01-08] MEDS: traZODone HCL 100 MG TABLET (FP) PO SCH (21:51)
[2018-01-08] MEDS: ATORVASTATIN CA 40 MG TABLET (FP) PO SCH (21:51)
[2018-01-08] MEDS: SUVOREXANT 10 MG TABLET PO PRN (21:52)
[2018-01-09] MEDS: LEVOTHYROXINE NA 25 MCG TABLET (FP) PO SCH (06:39)
[2018-01-09] MEDS: IBUPROFEN 400 MG TABLET (FP) PO PRN (06:40)
[2018-01-09] MEDS: PRENATAL VITAMINS W/ FOLIC ACID TABLET (FP) PO SCH (10:35)
[2018-01-09] MEDS: ESCITALOPRAM OXALATE 20 MG TABLET (FP) PO SCH (10:35)
[2018-01-09] MEDS: HYDROCORTISONE 1% TOPICAL CREAM 30 GM TUBE TP SCH ×2 (10:35→21:43)
[2018-01-09] MEDS: THIAMINE HCL 100 MG TABLET (FP) PO SCH (21:41)
[2018-01-09] MEDS: traZODone HCL 100 MG TABLET (FP) PO SCH (21:42)
[2018-01-09] MEDS: SUVOREXANT 10 MG TABLET PO PRN (21:42)
[2018-01-09] MEDS: hydrOXYzine PAMOATE 25 MG CAPSULE (FP) PO PRN (21:42)
[2018-01-09] MEDS: ATORVASTATIN CA 40 MG TABLET (FP) PO SCH (21:42)
[2018-01-10] MEDS: LEVOTHYROXINE NA 25 MCG TABLET (FP) PO SCH (06:09)
[2018-01-10] MEDS: HYDROCORTISONE 1% TOPICAL CREAM 30 GM TUBE TP SCH ×2 (10:28→21:19)
[2018-01-10] MEDS: PRENATAL VITAMINS W/ FOLIC ACID TABLET (FP) PO SCH (10:28)
[2018-01-10] MEDS: ESCITALOPRAM OXALATE 20 MG TABLET (FP) PO SCH (10:28)
[2018-01-10] MEDS ORDERED: PT OWN MED DRAWER 7, Y5N ONE (19:31)
[2018-01-10] MEDS: traZODone HCL 100 MG TABLET (FP) PO SCH (21:18)
[2018-01-10] MEDS: ATORVASTATIN CA 40 MG TABLET (FP) PO SCH (21:18)
[2018-01-10] MEDS: THIAMINE HCL 100 MG TABLET (FP) PO SCH (21:18)
[2018-01-10] MEDS: SUVOREXANT 10 MG TABLET PO PRN (21:19)
[2018-01-11] MEDS: LEVOTHYROXINE NA 25 MCG TABLET (FP) PO SCH (06:07)
[2018-01-11] MEDS: PRENATAL VITAMINS W/ FOLIC ACID TABLET (FP) PO SCH (10:16)
[2018-01-11] MEDS: HYDROCORTISONE 1% TOPICAL CREAM 30 GM TUBE TP SCH ×2 (10:16→21:58)
[2018-01-11] MEDS: ESCITALOPRAM OXALATE 20 MG TABLET (FP) PO SCH (10:16)
[2018-01-11] MEDS: hydrOXYzine PAMOATE 25 MG CAPSULE (FP) PO PRN (21:57)
[2018-01-11] MEDS: ATORVASTATIN CA 40 MG TABLET (FP) PO SCH (21:57)
[2018-01-11] MEDS: THIAMINE HCL 100 MG TABLET (FP) PO SCH (21:57)
[2018-01-11] MEDS: SUVOREXANT 10 MG TABLET PO PRN (21:57)
[2018-01-11] MEDS: traZODone HCL 100 MG TABLET (FP) PO SCH (21:57)
[2018-01-12] MEDS: LEVOTHYROXINE NA 25 MCG TABLET (FP) PO SCH (06:23)
[2018-01-12] MEDS: IBUPROFEN 400 MG TABLET (FP) PO PRN (06:23)
[2018-01-12] MEDS: PRENATAL VITAMINS W/ FOLIC ACID TABLET (FP) PO SCH (10:15)
[2018-01-12] MEDS: ESCITALOPRAM OXALATE 20 MG TABLET (FP) PO SCH (10:15)
[2018-01-12] MEDS: HYDROCORTISONE 1% TOPICAL CREAM 30 GM TUBE TP SCH ×2 (10:16→22:34)
[2018-01-12] MEDS: traZODone HCL 100 MG TABLET (FP) PO SCH (22:05)
[2018-01-12] MEDS: hydrOXYzine PAMOATE 25 MG CAPSULE (FP) PO PRN (22:05)
[2018-01-12] MEDS: THIAMINE HCL 100 MG TABLET (FP) PO SCH (22:06)
[2018-01-12] MEDS: SUVOREXANT 10 MG TABLET PO PRN (22:06)
[2018-01-12] MEDS: ATORVASTATIN CA 40 MG TABLET (FP) PO SCH (22:06)
[2018-01-13] MEDS: LEVOTHYROXINE NA 25 MCG TABLET (FP) PO SCH (06:36)
[2018-01-13] MEDS: PRENATAL VITAMINS W/ FOLIC ACID TABLET (FP) PO SCH (10:08)
[2018-01-13] MEDS: HYDROCORTISONE 1% TOPICAL CREAM 30 GM TUBE TP SCH ×2 (10:08→22:04)
[2018-01-13] MEDS: ESCITALOPRAM OXALATE 20 MG TABLET (FP) PO SCH (10:08)
[2018-01-13] MEDS: ATORVASTATIN CA 40 MG TABLET (FP) PO SCH (22:03)
[2018-01-13] MEDS: traZODone HCL 100 MG TABLET (FP) PO SCH (22:03)
[2018-01-13] MEDS: THIAMINE HCL 100 MG TABLET (FP) PO SCH (22:03)
[2018-01-13] MEDS: SUVOREXANT 10 MG TABLET PO PRN (22:03)
[2018-01-13] MEDS: hydrOXYzine PAMOATE 25 MG CAPSULE (FP) PO PRN (22:03)
[2018-01-14] MEDS: IBUPROFEN 400 MG TABLET (FP) PO PRN (06:24)
[2018-01-14] MEDS: LEVOTHYROXINE NA 25 MCG TABLET (FP) PO SCH (06:24)
[2018-01-14] MEDS: PRENATAL VITAMINS W/ FOLIC ACID TABLET (FP) PO SCH (10:29)
[2018-01-14] MEDS: ESCITALOPRAM OXALATE 20 MG TABLET (FP) PO SCH (10:29)
[2018-01-14] MEDS: HYDROCORTISONE 1% TOPICAL CREAM 30 GM TUBE TP SCH ×2 (10:30→22:33)
[2018-01-14] MEDS ORDERED: PT OWN MED DRAWER 7, Y5N ONE (19:52)
[2018-01-14] MEDS: THIAMINE HCL 100 MG TABLET (FP) PO SCH (22:33)
[2018-01-14] MEDS: traZODone HCL 100 MG TABLET (FP) PO SCH (22:33)
[2018-01-14] MEDS: ATORVASTATIN CA 40 MG TABLET (FP) PO SCH (22:33)
[2018-01-14] MEDS: hydrOXYzine PAMOATE 25 MG CAPSULE (FP) PO PRN (22:35)
[2018-01-15] MEDS: LEVOTHYROXINE NA 25 MCG TABLET (FP) PO SCH (06:34)
[2018-01-15] MEDS: IBUPROFEN 400 MG TABLET (FP) PO PRN (06:35)
[2018-01-15] MEDS: PRENATAL VITAMINS W/ FOLIC ACID TABLET (FP) PO SCH (10:38)
[2018-01-15] MEDS: HYDROCORTISONE 1% TOPICAL CREAM 30 GM TUBE TP SCH ×2 (10:38→21:37)
[2018-01-15] MEDS: ESCITALOPRAM OXALATE 20 MG TABLET (FP) PO SCH (10:38)
[2018-01-15] MEDS: traZODone HCL 100 MG TABLET (FP) PO SCH (21:37)
[2018-01-15] MEDS: ATORVASTATIN CA 40 MG TABLET (FP) PO SCH (21:37)
[2018-01-15] MEDS: THIAMINE HCL 100 MG TABLET (FP) PO SCH (21:37)
[2018-01-15] MEDS: SUVOREXANT 10 MG TABLET PO PRN (21:39)
[2018-01-16] MEDS: LEVOTHYROXINE NA 25 MCG TABLET (FP) PO SCH (06:39)
[2018-01-16] MEDS: IBUPROFEN 400 MG TABLET (FP) PO PRN ×2 (06:40→22:05)
[2018-01-16] MEDS: HYDROCORTISONE 1% TOPICAL CREAM 30 GM TUBE TP SCH ×2 (10:48→22:03)
[2018-01-16] MEDS: PRENATAL VITAMINS W/ FOLIC ACID TABLET (FP) PO SCH (10:48)
[2018-01-16] MEDS: ESCITALOPRAM OXALATE 20 MG TABLET (FP) PO SCH (10:48)
[2018-01-16] MEDS: traZODone HCL 100 MG TABLET (FP) PO SCH (22:04)
[2018-01-16] MEDS: hydrOXYzine PAMOATE 25 MG CAPSULE (FP) PO PRN (22:04)
[2018-01-16] MEDS: THIAMINE HCL 100 MG TABLET (FP) PO SCH (22:04)
[2018-01-16] MEDS: ATORVASTATIN CA 40 MG TABLET (FP) PO SCH (22:04)
[2018-01-16] MEDS: SUVOREXANT 10 MG TABLET PO PRN (22:05)
[2018-01-17] MEDS: LEVOTHYROXINE NA 25 MCG TABLET (FP) PO SCH (06:57)
[2018-01-17] MEDS: IBUPROFEN 400 MG TABLET (FP) PO PRN (06:58)
[2018-01-17] MEDS: ESCITALOPRAM OXALATE 20 MG TABLET (FP) PO SCH (10:15)
[2018-01-17] MEDS: HYDROCORTISONE 1% TOPICAL CREAM 30 GM TUBE TP SCH ×2 (10:15→21:58)
[2018-01-17] MEDS: PRENATAL VITAMINS W/ FOLIC ACID TABLET (FP) PO SCH (10:15)
[2018-01-17] MEDS: ATORVASTATIN CA 40 MG TABLET (FP) PO SCH (21:57)
[2018-01-17] MEDS: traZODone HCL 100 MG TABLET (FP) PO SCH (21:57)
[2018-01-17] MEDS: THIAMINE HCL 100 MG TABLET (FP) PO SCH (21:57)
[2018-01-17] MEDS: SUVOREXANT 10 MG TABLET PO PRN (21:59)
[2018-01-18] MEDS: LEVOTHYROXINE NA 25 MCG TABLET (FP) PO SCH (06:06)
[2018-01-18] MEDS: IBUPROFEN 400 MG TABLET (FP) PO PRN (06:08)
[2018-01-18] MEDS: PRENATAL VITAMINS W/ FOLIC ACID TABLET (FP) PO SCH (10:26)
[2018-01-18] MEDS: ESCITALOPRAM OXALATE 20 MG TABLET (FP) PO SCH (10:26)
[2018-01-18] MEDS: HYDROCORTISONE 1% TOPICAL CREAM 30 GM TUBE TP SCH ×2 (10:26→21:56)
[2018-01-18] MEDS: ATORVASTATIN CA 40 MG TABLET (FP) PO SCH (21:54)
[2018-01-18] MEDS: hydrOXYzine PAMOATE 25 MG CAPSULE (FP) PO PRN (21:54)
[2018-01-18] MEDS: THIAMINE HCL 100 MG TABLET (FP) PO SCH (21:54)
[2018-01-18] MEDS: traZODone HCL 100 MG TABLET (FP) PO SCH (21:54)
[2018-01-18] MEDS: SUVOREXANT 10 MG TABLET PO PRN (21:57)
[2018-01-19] MEDS: LEVOTHYROXINE NA 25 MCG TABLET (FP) PO SCH (06:21)
[2018-01-19] MEDS: IBUPROFEN 400 MG TABLET (FP) PO PRN (06:21)
[2018-01-19] MEDS: HYDROCORTISONE 1% TOPICAL CREAM 30 GM TUBE TP SCH ×2 (10:08→21:33)
[2018-01-19] MEDS: PRENATAL VITAMINS W/ FOLIC ACID TABLET (FP) PO SCH (10:08)
[2018-01-19] MEDS: ESCITALOPRAM OXALATE 20 MG TABLET (FP) PO SCH (10:08)
[2018-01-19] MEDS: THIAMINE HCL 100 MG TABLET (FP) PO SCH (21:31)
[2018-01-19] MEDS: traZODone HCL 100 MG TABLET (FP) PO SCH (21:31)
[2018-01-19] MEDS: hydrOXYzine PAMOATE 25 MG CAPSULE (FP) PO PRN (21:31)
[2018-01-19] MEDS: ATORVASTATIN CA 40 MG TABLET (FP) PO SCH (21:31)
[2018-01-19] MEDS: SUVOREXANT 10 MG TABLET PO PRN (21:32)
[2018-01-20] MEDS: LEVOTHYROXINE NA 25 MCG TABLET (FP) PO SCH (07:08)
[2018-01-20] MEDS: HYDROCORTISONE 1% TOPICAL CREAM 30 GM TUBE TP SCH ×2 (09:52→21:34)
[2018-01-20] MEDS: PRENATAL VITAMINS W/ FOLIC ACID TABLET (FP) PO SCH (09:52)
[2018-01-20] MEDS: ESCITALOPRAM OXALATE 20 MG TABLET (FP) PO SCH (09:52)
[2018-01-20] MEDS ORDERED: PT OWN MED DRAWER 7, Y5N ONE (12:47)
[2018-01-20] MEDS: IBUPROFEN 400 MG TABLET (FP) PO PRN (12:48)
[2018-01-20] MEDS: SELENIUM SULFIDE 2.5% LOTION 4 OZ. TP SCH (12:49)
[2018-01-20] MEDS: traZODone HCL 100 MG TABLET (FP) PO SCH (21:34)
[2018-01-20] MEDS: THIAMINE HCL 100 MG TABLET (FP) PO SCH (21:34)
[2018-01-20] MEDS: ATORVASTATIN CA 40 MG TABLET (FP) PO SCH (21:34)
[2018-01-20] MEDS: SUVOREXANT 10 MG TABLET PO PRN (21:35)
[2018-01-21] MEDS: LEVOTHYROXINE NA 25 MCG TABLET (FP) PO SCH (06:16)
[2018-01-21] MEDS: IBUPROFEN 400 MG TABLET (FP) PO PRN ×2 (06:17→22:03)
[2018-01-21] MEDS: HYDROCORTISONE 1% TOPICAL CREAM 30 GM TUBE TP SCH ×2 (09:55→22:01)
[2018-01-21] MEDS: PRENATAL VITAMINS W/ FOLIC ACID TABLET (FP) PO SCH (09:55)
[2018-01-21] MEDS: SELENIUM SULFIDE 2.5% LOTION 4 OZ. TP SCH (09:55)
[2018-01-21] MEDS: ESCITALOPRAM OXALATE 20 MG TABLET (FP) PO SCH (09:55)
[2018-01-21] MEDS: THIAMINE HCL 100 MG TABLET (FP) PO SCH (22:01)
[2018-01-21] MEDS: ATORVASTATIN CA 40 MG TABLET (FP) PO SCH (22:01)
[2018-01-21] MEDS: SUVOREXANT 10 MG TABLET PO PRN (22:01)
[2018-01-21] MEDS: traZODone HCL 100 MG TABLET (FP) PO SCH (22:01)
[2018-01-22] MEDS: LEVOTHYROXINE NA 25 MCG TABLET (FP) PO SCH (06:01)
[2018-01-22] MEDS: PRENATAL VITAMINS W/ FOLIC ACID TABLET (FP) PO SCH (10:24)
[2018-01-22] MEDS: ESCITALOPRAM OXALATE 20 MG TABLET (FP) PO SCH (10:24)
[2018-01-22] MEDS: SELENIUM SULFIDE 2.5% LOTION 4 OZ. TP SCH (10:24)
[2018-01-22] MEDS: HYDROCORTISONE 1% TOPICAL CREAM 30 GM TUBE TP SCH ×2 (10:25→21:39)
[2018-01-22] MEDS: hydrOXYzine PAMOATE 25 MG CAPSULE (FP) PO PRN (21:38)
[2018-01-22] MEDS: THIAMINE HCL 100 MG TABLET (FP) PO SCH (21:38)
[2018-01-22] MEDS: ATORVASTATIN CA 40 MG TABLET (FP) PO SCH (21:38)
[2018-01-22] MEDS: SUVOREXANT 10 MG TABLET PO PRN (21:38)
[2018-01-22] MEDS: traZODone HCL 100 MG TABLET (FP) PO SCH (21:38)
[2018-01-23] MEDS: LEVOTHYROXINE NA 25 MCG TABLET (FP) PO SCH (06:09)
--- NOTE | 2018-01-23 07:45 | PN ---
Psychiatric Progress Note Vital Signs: Vital Signs Period Temp Pulse Resp BP Sys/Ruano Pulse Ox Last 24 Hr 97.2 F 56 16-16 114/70 Date of Session: 01/23/18 Chief Complaint:: Discharge Note HPI: Patient addressing Alcohol Dependence comorbid with Depressive Disorder, Alcohol-Induced Anxiety Disorder and Alcohol-Induced Sleep Disorder ROS: HID, Hypothyroidism were medically managed Current Medications: Active Medications Generic Name Dose Route Start Last Admin Trade Name Freq PRN Reason Stop Dose Admin Acetaminophen 650 mg 12/22/17 16:47 12/29/17 16:51 Tylenol - PO 650 mg Q4H PRN Administration FEVER Al Hydroxide/Mg Hydroxide 30 ml 12/22/17 16:47 Mylanta Oral Suspension - PO Q6H PRN DYSPEPSIA Atorvastatin Calcium 40 mg 12/27/17 22:00 01/22/18 21:38 Lipitor - PO 40 mg HS JUVENTINO Administration Escitalopram Oxalate 20 mg 01/01/18 14:45 01/22/18 10:24 Lexapro - PO 20 mg DAILY JUVENTINO Administration Eucalyptus/Menthol/Phenol/Sorbitol 1 each 12/22/17 16:47 12/24/17 22:07 Cepastat Lozenge - MM 1 each Q4H PRN Administration SORE THROAT Guaifenesin 10 ml 12/22/17 16:47 Robitussin Dm - PO Q6H PRN COUGH Hydrocortisone 1 applic 12/25/17 10:00 01/22/18 21:39 Hytone 1% Cream - TP Not Given BID JUVENTINO Hydroxyzine Pamoate 25 mg 12/22/17 16:47 01/22/18 21:38 Vistaril - PO 25 mg Q4H PRN Administration AGITATION Ibuprofen 400 mg 12/22/17 16:47 01/21/18 22:03 Motrin - PO 400 mg Q6H PRN Administration PAIN LEVEL 4-6 Levothyroxine Sodium 50 mcg 01/07/18 07:00 01/23/18 06:09 Synthroid - PO 50 mcg DAILY@0700 JUVENTINO Administration Loperamide HCl 4 mg 12/22/17 16:47 Imodium - PO Q6H PRN DIARRHEA Magnesium Citrate 300 ml 12/22/17 16:47 Citroma - PO Q48H PRN CONSTIPATION Magnesium Hydroxide 30 ml 12/22/17 16:47 01/21/18 22:03 Milk Of Magnesia - PO 30 ml DAILY PRN Administration CONSTIPATION Multivit/Folic Acid/Iron 1 tab 12/23/17 10:00 01/22/18 10:24 Vitamins (Sjr) - PO 1 tab DAILY JUVENTINO Administration Pseudoephedrine/Triprolidine 1 combo 12/22/17 16:47 Actifed - PO TID PRN NASAL CONGESTION Selenium Sulfide 1 applic 01/20/18 11:00 01/22/18 10:24 Selsun 2.5% Lotion - TP 01/27/18 10:53 1 applic DAILY JUVENTINO Administration Suvorexant 10 mg 01/21/18 22:00 01/22/18 21:38 Belsomra PO 10 mg HS PRN Administration INSOMNIA Thiamine HCl 100 mg 12/22/17 22:00 01/22/18 21:38 Vitamin B1 - PO 100 mg HS JUVENTINO Administration Trazodone HCl 100 mg 12/27/17 22:00 01/22/18 21:38 Desyrel - PO 100 mg HS JUVENTINO Administration Current Side Effect: No Lab tests ordered: Yes Lab tests reviewed: Yes Provider note:: Patient will complete this program on 01/24/18. He has met his treatment goals and will continue to address his issues in. He verbalized understanding of the consequences of his addiction and recognizing the necessary changes to his life styles in order to maintain abstinence. he responded well to Lexapro 20 mg po daily and Trazadone 100 mg po HS. Scripts for 30 days supply of these medications will be electronically transmitted to [facility] at [address] [place] [address]. He is stable for discharge on 01/24/18 Total face to face time:: 35 Mental Status Exam - Mental Status Exam Alert and Oriented to: Time, Place, Person Cognitive Function: Fair Patient Appearance: Well Groomed Mood: Hopeful, Euthymic Affect: Appropriate Patient Behavior: Cooperative Speech Pattern: Clear Voice Loudness: Normal Thought Process: Intact, Goal Oriented Thought Disorder: Not Present Hallucinations: Denies Suicidal Ideation: Denies Homicidal Ideation: Denies Insight/Judgement: Fair Sleep: Fair Appetite: Good Muscle strength/Tone: Normal Gait/Station: Normal Psychiatric Treatment Plan - Problem List (1) Alcohol dependence Current Visit: Yes (2) Alcohol-induced anxiety disorder Current Visit: Yes (3) Alcohol-induced sleep disorder Current Visit: Yes (4) Hx of hyperlipidemia Current Visit: Yes (5) History of hypothyroidism Current Visit: Yes (6) Depressive disorder Current Visit: Yes Initial treatment plan: Patient will be discharged tomorrow and referred to for
--- NOTE | 2018-01-23 10:30 | PN ---
S Progress Note Note: PT C/O RIGHT EAR DISCOMFORT YESTERDAY WHICH HE SAYS IS BETTER TODAY. REPORTS RUNNY NOSE, WATERY EYES,EAR FULLNESS BUT DENIES COUGH. Vital Signs - 24 hr 01/23/18 01/23/18 03:30 07:07 Temperature 97.2 F L Pulse Rate 56 L Respiratory 16 16 Rate Blood Pressure 114/70 EAR EXAM: RIGHT EAR NOT INJECTED;NO SWELLING, TM WNL BUT EAR PASSAGE WITH MODERATE CERUMEN. NO TENDERNESS TO SINUS AREAS ON PALPATION THROAT: NO REDNESS, SWELLING OR EXUDATE. IMPRESSION:HEAD COLD URI-VIRAL TYPE PLAN:ACTIFED PRN SALINE NASAL SPRAY DIRECTED DEBROX DIRECTED
[2018-01-23] MEDS: PRENATAL VITAMINS W/ FOLIC ACID TABLET (FP) PO SCH (10:36)
[2018-01-23] MEDS: ESCITALOPRAM OXALATE 20 MG TABLET (FP) PO SCH (10:36)
[2018-01-23] MEDS: HYDROCORTISONE 1% TOPICAL CREAM 30 GM TUBE TP SCH ×2 (10:36→22:03)
[2018-01-23] MEDS: SELENIUM SULFIDE 2.5% LOTION 4 OZ. TP SCH (10:38)
[2018-01-23] MEDS: SODIUM CHLORIDE NASAL SPRAY 44 ML BOTTLE NS SCH ×2 (10:47→22:04)
[2018-01-23] MEDS: SUVOREXANT 10 MG TABLET PO PRN (22:02)
[2018-01-23] MEDS: THIAMINE HCL 100 MG TABLET (FP) PO SCH (22:02)
[2018-01-23] MEDS: hydrOXYzine PAMOATE 25 MG CAPSULE (FP) PO PRN (22:02)
[2018-01-23] MEDS: ATORVASTATIN CA 40 MG TABLET (FP) PO SCH (22:02)
[2018-01-23] MEDS: traZODone HCL 100 MG TABLET (FP) PO SCH (22:02)
[2018-01-23] MEDS: CARBAMIDE PEROXIDE 6.5% OTIC 15 ML BOTTLE AD SCH (22:06)
[2018-01-24] MEDS: LEVOTHYROXINE NA 25 MCG TABLET (FP) PO SCH (06:18)
[2018-01-24] MEDS: IBUPROFEN 400 MG TABLET (FP) PO PRN (06:19)
[2018-01-24] MEDS: PRENATAL VITAMINS W/ FOLIC ACID TABLET (FP) PO SCH (10:15)
[2018-01-24] MEDS: SODIUM CHLORIDE NASAL SPRAY 44 ML BOTTLE NS SCH ×2 (10:15→21:44)
[2018-01-24] MEDS: HYDROCORTISONE 1% TOPICAL CREAM 30 GM TUBE TP SCH ×2 (10:15→21:44)
[2018-01-24] MEDS: ESCITALOPRAM OXALATE 20 MG TABLET (FP) PO SCH (10:15)
[2018-01-24] MEDS: SELENIUM SULFIDE 2.5% LOTION 4 OZ. TP SCH (10:16)
[2018-01-24] MEDS: traZODone HCL 100 MG TABLET (FP) PO SCH (21:42)
[2018-01-24] MEDS: THIAMINE HCL 100 MG TABLET (FP) PO SCH (21:42)
[2018-01-24] MEDS: ATORVASTATIN CA 40 MG TABLET (FP) PO SCH (21:42)
[2018-01-24] MEDS: CARBAMIDE PEROXIDE 6.5% OTIC 15 ML BOTTLE AD SCH (21:43)
[2018-01-25] MEDS: LEVOTHYROXINE NA 25 MCG TABLET (FP) PO SCH (06:23)
[2018-01-25] MEDS: SODIUM CHLORIDE NASAL SPRAY 44 ML BOTTLE NS SCH ×2 (10:31→21:56)
[2018-01-25] MEDS: ESCITALOPRAM OXALATE 20 MG TABLET (FP) PO SCH (10:31)
[2018-01-25] MEDS: HYDROCORTISONE 1% TOPICAL CREAM 30 GM TUBE TP SCH ×2 (10:31→21:56)
[2018-01-25] MEDS: SELENIUM SULFIDE 2.5% LOTION 4 OZ. TP SCH (10:31)
[2018-01-25] MEDS: PRENATAL VITAMINS W/ FOLIC ACID TABLET (FP) PO SCH (10:31)
[2018-01-25] MEDS: ATORVASTATIN CA 40 MG TABLET (FP) PO SCH (21:52)
[2018-01-25] MEDS: hydrOXYzine PAMOATE 25 MG CAPSULE (FP) PO PRN (21:52)
[2018-01-25] MEDS: SUVOREXANT 10 MG TABLET PO PRN (21:52)
[2018-01-25] MEDS: traZODone HCL 100 MG TABLET (FP) PO SCH (21:52)
[2018-01-25] MEDS: THIAMINE HCL 100 MG TABLET (FP) PO SCH (21:52)
[2018-01-25] MEDS: CARBAMIDE PEROXIDE 6.5% OTIC 15 ML BOTTLE AD SCH (21:56)
[2018-01-26] MEDS: LEVOTHYROXINE NA 25 MCG TABLET (FP) PO SCH (06:25)
[2018-01-26] MEDS: IBUPROFEN 400 MG TABLET (FP) PO PRN (06:37)
[2018-01-26] MEDS: SELENIUM SULFIDE 2.5% LOTION 4 OZ. TP SCH (10:26)
[2018-01-26] MEDS: PRENATAL VITAMINS W/ FOLIC ACID TABLET (FP) PO SCH (10:26)
[2018-01-26] MEDS: HYDROCORTISONE 1% TOPICAL CREAM 30 GM TUBE TP SCH ×2 (10:26→21:50)
[2018-01-26] MEDS: ESCITALOPRAM OXALATE 20 MG TABLET (FP) PO SCH (10:26)
[2018-01-26] MEDS: SODIUM CHLORIDE NASAL SPRAY 44 ML BOTTLE NS SCH ×2 (10:42→21:50)
[2018-01-26] MEDS: THIAMINE HCL 100 MG TABLET (FP) PO SCH (21:49)
[2018-01-26] MEDS: ATORVASTATIN CA 40 MG TABLET (FP) PO SCH (21:49)
[2018-01-26] MEDS: traZODone HCL 100 MG TABLET (FP) PO SCH (21:49)
[2018-01-26] MEDS: hydrOXYzine PAMOATE 25 MG CAPSULE (FP) PO PRN (21:49)
[2018-01-26] MEDS: SUVOREXANT 10 MG TABLET PO PRN (21:49)
[2018-01-26] MEDS: CARBAMIDE PEROXIDE 6.5% OTIC 15 ML BOTTLE AD SCH (21:50)
[2018-01-27] MEDS: LEVOTHYROXINE NA 25 MCG TABLET (FP) PO SCH (06:36)
[2018-01-27] MEDS: PRENATAL VITAMINS W/ FOLIC ACID TABLET (FP) PO SCH (10:36)
[2018-01-27] MEDS: HYDROCORTISONE 1% TOPICAL CREAM 30 GM TUBE TP SCH ×2 (10:36→21:32)
[2018-01-27] MEDS: ESCITALOPRAM OXALATE 20 MG TABLET (FP) PO SCH (10:36)
[2018-01-27] MEDS: SODIUM CHLORIDE NASAL SPRAY 44 ML BOTTLE NS SCH ×2 (10:37→21:31)
[2018-01-27] MEDS: SELENIUM SULFIDE 2.5% LOTION 4 OZ. TP SCH (10:37)
[2018-01-27] MEDS: THIAMINE HCL 100 MG TABLET (FP) PO SCH (21:30)
[2018-01-27] MEDS: SUVOREXANT 10 MG TABLET PO PRN (21:30)
[2018-01-27] MEDS: hydrOXYzine PAMOATE 25 MG CAPSULE (FP) PO PRN (21:30)
[2018-01-27] MEDS: traZODone HCL 100 MG TABLET (FP) PO SCH (21:30)
[2018-01-27] MEDS: ATORVASTATIN CA 40 MG TABLET (FP) PO SCH (21:30)
[2018-01-27] MEDS: CARBAMIDE PEROXIDE 6.5% OTIC 15 ML BOTTLE AD SCH (21:32)
[2018-01-28] MEDS: LEVOTHYROXINE NA 25 MCG TABLET (FP) PO SCH (06:25)
[2018-01-28] MEDS: IBUPROFEN 400 MG TABLET (FP) PO PRN (06:27)
[2018-01-28] MEDS: PRENATAL VITAMINS W/ FOLIC ACID TABLET (FP) PO SCH (10:16)
[2018-01-28] MEDS: ESCITALOPRAM OXALATE 20 MG TABLET (FP) PO SCH (10:16)
[2018-01-28] MEDS: SODIUM CHLORIDE NASAL SPRAY 44 ML BOTTLE NS SCH ×2 (10:18→21:51)
[2018-01-28] MEDS: HYDROCORTISONE 1% TOPICAL CREAM 30 GM TUBE TP SCH ×2 (10:18→21:50)
[2018-01-28] MEDS ORDERED: PT OWN MED DRAWER 7, Y5N ONE (10:18)
[2018-01-28] MEDS: traZODone HCL 100 MG TABLET (FP) PO SCH (21:49)
[2018-01-28] MEDS: ATORVASTATIN CA 40 MG TABLET (FP) PO SCH (21:49)
[2018-01-28] MEDS: hydrOXYzine PAMOATE 25 MG CAPSULE (FP) PO PRN (21:49)
[2018-01-28] MEDS: THIAMINE HCL 100 MG TABLET (FP) PO SCH (21:49)
[2018-01-28] MEDS: CARBAMIDE PEROXIDE 6.5% OTIC 15 ML BOTTLE AD SCH (21:50)
[2018-01-29] MEDS: LEVOTHYROXINE NA 25 MCG TABLET (FP) PO SCH (06:48)
[2018-01-29] MEDS: ESCITALOPRAM OXALATE 20 MG TABLET (FP) PO SCH (10:45)
[2018-01-29] MEDS: PRENATAL VITAMINS W/ FOLIC ACID TABLET (FP) PO SCH (10:45)
[2018-01-29] MEDS: SODIUM CHLORIDE NASAL SPRAY 44 ML BOTTLE NS SCH ×2 (10:45→22:05)
[2018-01-29] MEDS: HYDROCORTISONE 1% TOPICAL CREAM 30 GM TUBE TP SCH ×2 (10:45→22:05)
--- NOTE | 2018-01-29 11:49 | PN ---
Psychiatric Progress Note Vital Signs: Vital Signs Period Temp Pulse Resp BP Sys/Ruano Pulse Ox Last 24 Hr 98.0 F 57 18-18 113/74 Date of Session: 01/29/18 Chief Complaint:: Discharge Note HPI: Patient addressing Alcohol Dependence comorbid with Depressive Disorder, Alcohol-Induced Anxiety Disorder and Alcohol-Induced Sleep Disorder ROS: HLD, Hypothyroidism were medically managed Current Medications: Active Medications Generic Name Dose Route Start Last Admin Trade Name Freq PRN Reason Stop Dose Admin Acetaminophen 650 mg 12/22/17 16:47 12/29/17 16:51 Tylenol - PO 650 mg Q4H PRN Administration FEVER Al Hydroxide/Mg Hydroxide 30 ml 12/22/17 16:47 Mylanta Oral Suspension - PO Q6H PRN DYSPEPSIA Atorvastatin Calcium 40 mg 12/27/17 22:00 01/28/18 21:49 Lipitor - PO 40 mg HS JUVENTINO Administration Carbamide Perox/Anhydrous Glycerin 5 drop 01/23/18 22:00 01/28/18 21:50 Debrox - AD Not Given HS JUVENTINO Escitalopram Oxalate 20 mg 01/01/18 14:45 01/29/18 10:45 Lexapro - PO 20 mg DAILY JUVENTINO Administration Eucalyptus/Menthol/Phenol/Sorbitol 1 each 12/22/17 16:47 12/24/17 22:07 Cepastat Lozenge - MM 1 each Q4H PRN Administration SORE THROAT Guaifenesin 10 ml 12/22/17 16:47 Robitussin Dm - PO Q6H PRN COUGH Hydrocortisone 1 applic 12/25/17 10:00 01/29/18 10:45 Hytone 1% Cream - TP Not Given BID JUVENTINO Hydroxyzine Pamoate 25 mg 12/22/17 16:47 01/28/18 21:49 Vistaril - PO 25 mg Q4H PRN Administration AGITATION Ibuprofen 400 mg 12/22/17 16:47 01/28/18 06:27 Motrin - PO 400 mg Q6H PRN Administration PAIN LEVEL 4-6 Levothyroxine Sodium 50 mcg 01/07/18 07:00 01/29/18 06:48 Synthroid - PO 50 mcg DAILY@0700 JUVENTINO Administration Loperamide HCl 4 mg 12/22/17 16:47 Imodium - PO Q6H PRN DIARRHEA Magnesium Citrate 300 ml 12/22/17 16:47 Citroma - PO Q48H PRN CONSTIPATION Magnesium Hydroxide 30 ml 12/22/17 16:47 01/21/18 22:03 Milk Of Magnesia - PO 30 ml DAILY PRN Administration CONSTIPATION Multivit/Folic Acid/Iron 1 tab 12/23/17 10:00 01/29/18 10:45 Vitamins (Sjr) - PO 1 tab DAILY JUVENTINO Administration Pseudoephedrine/Triprolidine 1 combo 12/22/17 16:47 01/23/18 10:38 Actifed - PO 1 combo TID PRN Administration NASAL CONGESTION Sodium Chloride 2 spray 01/23/18 10:30 01/29/18 10:45 [place] Crane Nasal Crane - NS Not Given BID JVUENTINO Thiamine HCl 100 mg 12/22/17 22:00 01/28/18 21:49 Vitamin B1 - PO 100 mg HS JUVENTINO Administration Trazodone HCl 100 mg 12/27/17 22:00 01/28/18 21:49 Desyrel - PO 100 mg HS JUVENTINO Administration Current Side Effect: No Lab tests ordered: Yes Lab tests reviewed: Yes Provider note:: Patient will complete this program on 01/30/18. He has met his treatment goals and will continue to address his issues in outpatient treatment at [facility] at [address] [place] [address]. He verbalized understanding of the consequences of his addiction and recognizing the necessary changes to his life styles in order to maintain abstinence. he responded well to Lexapro 20 mg po daily and Trazadone 100 mg po HS. Scripts for 30 days supply of these medications will be electronically transmitted to [facility] at [address] [place] [address]. He is stable for discharge on 01/30/18 Total face to face time:: 35 Mental Status Exam - Mental Status Exam Alert and Oriented to: Time, Place, Person Cognitive Function: Fair Patient Appearance: Well Groomed Mood: Hopeful, Euthymic Affect: Appropriate Patient Behavior: Cooperative Speech Pattern: Clear Voice Loudness: Normal Thought Process: Intact, Goal Oriented Thought Disorder: Not Present Hallucinations: Denies Suicidal Ideation: Denies Homicidal Ideation: Denies Insight/Judgement: Fair Sleep: Fair Appetite: Good Muscle strength/Tone: Normal Gait/Station: Normal Psychiatric Treatment Plan - Problem List (1) Alcohol dependence Current Visit: Yes (2) Alcohol-induced anxiety disorder Current Visit: Yes (3) Alcohol-induced sleep disorder Current Visit: Yes (4) Hx of hyperlipidemia Current Visit: Yes (5) History of hypothyroidism Current Visit: Yes (6) Depressive disorder Current Visit: Yes Initial treatment plan: Patient will be discharged tomorrow and referred to for
[2018-01-29] MEDS: hydrOXYzine PAMOATE 25 MG CAPSULE (FP) PO PRN (22:03)
[2018-01-29] MEDS: ATORVASTATIN CA 40 MG TABLET (FP) PO SCH (22:03)
[2018-01-29] MEDS: THIAMINE HCL 100 MG TABLET (FP) PO SCH (22:03)
[2018-01-29] MEDS: traZODone HCL 100 MG TABLET (FP) PO SCH (22:04)
[2018-01-29] MEDS: CARBAMIDE PEROXIDE 6.5% OTIC 15 ML BOTTLE AD SCH (22:05)
[2018-01-30] MEDS: LEVOTHYROXINE NA 25 MCG TABLET (FP) PO SCH (06:44)
[2018-01-30 07:04] VITALS: BP 112/65; PULSE 55; TEMP 97.6
[2018-01-30] MEDS: PRENATAL VITAMINS W/ FOLIC ACID TABLET (FP) PO SCH (09:28)
[2018-01-30] MEDS: SODIUM CHLORIDE NASAL SPRAY 44 ML BOTTLE NS SCH (09:28)
[2018-01-30] MEDS: ESCITALOPRAM OXALATE 20 MG TABLET (FP) PO SCH (09:28)
[2018-01-30] MEDS: HYDROCORTISONE 1% TOPICAL CREAM 30 GM TUBE TP SCH (09:30)
--- NOTE | 2018-01-30 10:44 | PN ---
S Progress Note Note: PT COMPLETED REHAB AND DISCHARGED TODAY. ALERT O X 3. PT STATES WILL BE GOING [place] CLOSE TO HIS PRIMARY CARE PROVIDERS AND FAMILY(SEE MY NOTE OF 01/02/18 FOR DETAILED INFORMATION ON PT'S PCP/PHARMACY MEDICAL FOLLOW UP PLANS ). Vital Signs - 24 hr 01/30/18 01/30/18 03:30 07:03 Temperature 97.6 F Pulse Rate 55 L Respiratory 18 18 Rate Blood Pressure 112/65 NAD PLAN:FOLLOW UP WITH PCP DISCUSSED EARLIER WITHIN 1 - 2 WEEKS AFTER DISCHARGE FROM REHAB FOLLOW UP WITH AFTERCARE PLANNED WITH YOUR COUNSELOR.
== END 2018-01-30 09:42 | disposition home or self-care (01) | DRG 895 ==
LOC: YASAS 09:52 → Y3N 18:44 → Y3W 12-27 13:34
PROVIDERS: ATTEND Psychiatry & Neurology Psychiatry
PROC: HZ2ZZZZ Detoxification Services for Substance Abuse Treatment (ICD-10-PCS; 2017-12-22)
PROC: HZ42ZZZ Group Counseling for Substance Abuse Treatment, Cognitive-Behavioral (ICD-10-PCS; principal; 2017-12-27)
DX: F10.20 Alcohol dependence, uncomplicated (principal); R45.851 Suicidal ideations; F10.280 Alcohol dependence with alcohol-induced anxiety disorder; F10.282 Alcohol dependence with alcohol-induced sleep disorder; F32.9 Major depressive disorder, single episode, unspecified; G47.00 Insomnia, unspecified; E78.5 Hyperlipidemia, unspecified; E03.9 Hypothyroidism, unspecified; J06.9 Acute upper respiratory infection, unspecified; R73.03 Prediabetes; L30.9 Dermatitis, unspecified; L21.9 Seborrheic dermatitis, unspecified
CPT/HCPCS: 36415; 71046-TC-FY; 71250-TC; 80053; 81003; 82947; 83036; 84436; 84443; 84479; 85027; 86593; 87389; 90670; 90688; 93005; 93010; G0008; G0009